=== PATIENT | female | born 1995 | race Two or more races ===

== ENCOUNTER 2017-03-08 12:29 | Emergency (ER) | payer SELFPAY ==
[~2017-03-08] VITALS: Ht 167.6 cm; Wt 92.1 kg
[~2017-03-08 12:29] MED LIST: FERR-26 PO; PNV1TABL25 PO
[2017-03-08 13:43] VITALS: BP 128/60
[2017-03-08] MEDS ORDERED: CYCL10TA2 PO (14:20)
[2017-03-08] MEDS ORDERED: NAPR500T8 PO (14:20)
[2017-03-08] MEDS ORDERED: ACET-704 PO (14:20)
--- NOTE | 2017-03-08 14:20 | PHYS DOC ---
Past Medical History Past Medical History: Other Additional Past Medical Histor: gestational diabetes Past Surgical History: Other Additional Past Surgical Histo: right wrist surgery Alcohol Use: None Drug Use: None Adult General Chief Complaint Chief Complaint: BACK PAIN OR INJURY [facility] HPI Patient is a 22 year old female who presents with bilateral low back pain that has been going on since she had a baby 6 months ago. Patient states she had and epidural during delivery and believes this pain is from the epidural. Patient states she has not followed up with the doctor that did the epidural. Patient denies pain radiating to bilateral lower extremities. Denies any loss of bowel bladder function. Denies any numbness or tingling to bilateral lower extremities. Review of Systems Review of Systems Constitutional: Denies fever or chills [] Eyes: Denies change in visual acuity, redness, or eye pain [] HENT: Denies nasal congestion or sore throat [] Respiratory: Denies cough or shortness of breath [] Cardiovascular: No additional information not addressed in HPI [] GI: Denies abdominal pain, nausea, vomiting, bloody stools or diarrhea [] : Denies dysuria or hematuria [] Musculoskeletal: Bilateral low back pain Integument: Denies rash or skin lesions [] Neurologic: Denies headache, focal weakness or sensory changes [] Endocrine: Denies polyuria or polydipsia [] Allergies Allergies Allergies Coded Allergies Type Severity Reaction Last Updated Verified No Known Drug Allergies 02/07/15 No Physical Exam Physical Exam Constitutional: Well developed, well nourished, no acute distress, non-toxic appearance. [] HENT: Normocephalic, atraumatic, bilateral external ears normal, oropharynx moist, no oral exudates, nose normal. [] Eyes: PERRLA, EOMI, conjunctiva normal, no discharge. [] Neck: Normal range of motion, no tenderness, supple, no stridor. [] Cardiovascular:Heart rate regular rhythm, no murmur [] Lungs & Thorax: Bilateral breath sounds clear to auscultation [] Abdomen: Bowel sounds normal, soft, no tenderness, no masses, no pulsatile masses. [] Skin: Warm, dry, no erythema, no rash. [] Back: Tenderness diffusely to bilateral low back lumbar region. No midline Tenderness, no CVA tenderness. [] Extremities: No tenderness, no cyanosis, no clubbing, ROM intact, no edema. [] Neurologic: Alert and oriented X 3, normal motor function, normal sensory function, no focal deficits noted. [] Psychologic: Affect normal, judgement normal, mood normal. [] Current Patient Data Vital Signs Vital Signs Date Time Temp Pulse Resp B/P (MAP) Pulse Ox O2 Delivery O2 Flow Rate FiO2 03/08/17 13:43 98.0 80 18 99 Room Air 98.0 EKG EKG [] Radiology/Procedures Radiology/Procedures [] Course & Med Decision Making Course & Med Decision Making Pertinent Labs and Imaging studies reviewed. (See chart for details) Patient is in the ED with back pain that she believes is from an epidural she got to 6 months ago when she had a baby. She was given Tylenol#3 naproxen and Flexeril for home use and recommended she follows up with the doctor that did epidural Dragon Disclaimer Dragon Disclaimer This electronic medical record was generated, in whole or in part, using a voice recognition dictation system. Departure Departure Impression: Primary Impression: Chronic back pain Disposition: 01 HOME, SELF-CARE Condition: STABLE Referrals: NO PCP (PCP) Follow-up with your doctor at [facility] Patient Instructions: Back Pain, Adult Additional Instructions: You were seen for back pain. Follow-up with your own doctor at [facility]. Scripts Naproxen (NAPROXEN) 500 Mg Tablet. 1 TAB PO BID, #60 TAB 1 Refill Prov: DANIEL CARY APRN 03/08/17 Acetaminophen With Codeine (TYLENOL WITH CODEINE #3 TABLET) 1 Each Tablet 1 TAB PO PRN Q6HRS Y for PAIN, #30 TAB Prov: DANIEL CARY APRN 03/08/17 Cyclobenzaprine Hcl (CYCLOBENZAPRINE HCL) 10 Mg Tablet 1 TAB PO TID, #30 TAB Prov: DANIEL CARY APRN 03/08/17 Problem Qualifiers Primary Impression: Chronic back pain Back pain location: low back pain Back pain laterality: bilateral Sciatica presence: without sciatica Qualified Codes: M54.5 - Low back pain; G89.29 - Other chronic pain DANIEL CARY APRN March 08, 2017 14:20
--- NOTE | 2017-03-08 15:24 | RAD ---
Indication: Chronic low back pain. Time of exam 1457 hours. 3 views of the lumbar spine were obtained. Curvature and alignment is normal. The vertebral body heights and disc spaces are well-maintained. No fracture or subluxation is identified. Impression: No acute bony abnormality is detected.
== END 2017-03-08 15:33 | disposition home or self-care (01) ==
LOC: ER 12:29
DX: G89.29 Other chronic pain (principal); M54.5 Low back pain
CPT/HCPCS: 72100; 99284

== ENCOUNTER 2018-05-24 23:20 | Emergency (ER) | payer SELFPAY ==
[2018-05-25 03:53] LABS: ADD MAN DIFF? NO; BASO # 0.1 x10^3/uL (0.0-0.2); BASO % 0 % (0-3); EOS # 0.1 x10^3/uL (0.0-0.7); EOS % 1 % (0-3); HEMATOCRIT 36.4 % (36.0-47.0); HEMOGLOBIN 11.9 g/dL (12.0-15.5); LYMPH # 4.3 x10^3/uL (1.0-4.8); LYMPH % 38 % (24-48); MEAN CORPUSCULAR HEMOGLOBIN 25 pg (25-35); MEAN CORPUSCULAR HGB CONC 33 g/dL (31-37); MEAN CORPUSCULAR VOLUME 77 fL (79-100); MONO # 0.6 x10^3/uL (0.0-1.1); MONO % 5 % (0-9); NEUT # 6.3 x10^3uL (1.8-7.7); NEUT % 56 % (31-73); PLATELET COUNT 206 x10^3/uL (140-400); RED BLOOD COUNT 4.73 x10^6/uL (3.50-5.40); RED CELL DISTRIBUTION WIDTH 16.5 % (11.5-14.5); WHITE BLOOD COUNT 11.4 x10^3/uL (4.0-11.0)
[2018-05-25 03:57] LABS: ANION GAP 9 (6-14); BLOOD UREA NITROGEN 10 mg/dL (7-20); CALCIUM 8.8 mg/dL (8.5-10.1); CARBON DIOXIDE 26 mmol/L (21-32); CHLORIDE 97 mmol/L (98-107); CREATININE 0.8 mg/dL (0.6-1.0); GFR 90.5; GLUCOSE 415 mg/dL (70-99); MAGNESIUM 1.9 mg/dL (1.8-2.4); POTASSIUM 3.9 mmol/L (3.5-5.1); SODIUM 132 mmol/L (136-145)
[2018-05-25] MEDS: ACETAMINOPHEN 325 MG TABLET. PO (04:53)
== END 2018-05-25 05:01 | disposition home or self-care (01) ==
LOC: ER 23:20
DX: O03.9 Complete or unspecified spontaneous abortion without complication (principal); Z88.5 Allergy status to narcotic agent; Z3A.00 Weeks of gestation of pregnancy not specified
CPT/HCPCS: 36415; 76801; 76817; 80048; 83735; 84702; 85025; 86900; 86901; 99285-25

== ENCOUNTER 2018-06-19 08:01 | Emergency (ER) | payer SELFPAY ==
[~2018-06-19] VITALS: Ht 170.2 cm; Wt 81.6 kg
[~2018-06-19 08:01] MED LIST changes: +ACET-704 PO; +CYCL10TA2 PO; -FERR-26 PO; +FERR325T14 PO; +NAPR500T8 PO; +TRAM50TA PO
[2018-06-19 08:33] VITALS: BP 141/67
[2018-06-19] MEDS ORDERED: IPRATRPIUM/ALBUTEROL 0.5/2.5MG 3 ML NEBU. ONE (10:13)
[2018-06-19] MEDS ORDERED: DEXAMETHASONE 4 MG TABLET PO ONE (10:30)
[2018-06-19] MEDS ORDERED: IBUPROFEN 600 MG TABLET. PO ONE (10:30)
[2018-06-19] MEDS ORDERED: IPRATRPIUM/ALBUTEROL 0.5/2.5MG 3 ML NEBU. NEB ONE (10:30)
--- NOTE | 2018-06-19 10:56 | PHYS DOC ---
Past Medical History Past Medical History: No Pertinent History Additional Past Medical Histor: gestational diabetes Past Surgical History: No Surgical History Additional Past Surgical Histo: right wrist surgery Alcohol Use: None Drug Use: None Adult General Chief Complaint Chief Complaint: COUGH HPI HPI Patient is a 23 year old [f__sex] who presents with [] Review of Systems Review of Systems Constitutional: Denies fever or chills [] Eyes: Denies change in visual acuity, redness, or eye pain [] HENT: Denies nasal congestion or sore throat [] Respiratory: Denies cough or shortness of breath [] Cardiovascular: No additional information not addressed in HPI [] GI: Denies abdominal pain, nausea, vomiting, bloody stools or diarrhea [] : Denies dysuria or hematuria [] Musculoskeletal: Denies back pain or joint pain [] Integument: Denies rash or skin lesions [] Neurologic: Denies headache, focal weakness or sensory changes [] Endocrine: Denies polyuria or polydipsia [] All other systems were reviewed and found to be within normal limits, except as documented in this note. Current Medications Current Medications Current Medications Medications (Trade) Dose Ordered Sig/Isadora Start Time Stop Time Status Last Admin Dose Admin Albuterol/ Ipratropium (Duoneb) 3 ml STK-MED ONCE 06/19/18 10:13 06/19/18 10:14 DC Dexamethasone (Decadron) 10 mg 1X ONCE 06/19/18 10:30 06/19/18 10:31 DC Ibuprofen (Motrin) 600 mg 1X ONCE 06/19/18 10:30 06/19/18 10:31 DC Allergies Allergies Allergies Coded Allergies Type Severity Reaction Last Updated Verified codeine Adverse Reaction Intermediate HALLUCINATION 03/08/17 Yes Physical Exam Physical Exam Constitutional: Well developed, well nourished, no acute distress, non-toxic appearance. [] HENT: Normocephalic, atraumatic, bilateral external ears normal, oropharynx moist, no oral exudates, nose normal. [] Eyes: PERRLA, EOMI, conjunctiva normal, no discharge. [] Neck: Normal range of motion, no tenderness, supple, no stridor. [] Cardiovascular:Heart rate regular rhythm, no murmur [] Lungs & Thorax: Bilateral breath sounds clear to auscultation [] Abdomen: Bowel sounds normal, soft, no tenderness, no masses, no pulsatile masses. [] Skin: Warm, dry, no erythema, no rash. [] Back: No tenderness, no CVA tenderness. [] Extremities: No tenderness, no cyanosis, no clubbing, ROM intact, no edema. [] Neurologic: Alert and oriented X 3, normal motor function, normal sensory function, no focal deficits noted. [] Psychologic: Affect normal, judgement normal, mood normal. [] Current Patient Data Vital Signs Vital Signs Date Time Temp Pulse Resp B/P (MAP) Pulse Ox O2 Delivery O2 Flow Rate FiO2 06/19/18 10:23 100 Room Air 06/19/18 08:33 98.4 81 20 141/67 (91) 98.4 EKG EKG [] Radiology/Procedures Radiology/Procedures [] Course & Med Decision Making Course & Med Decision Making Pertinent Labs and Imaging studies reviewed. (See chart for details) [] Dragon Disclaimer Dragon Disclaimer This electronic medical record was generated, in whole or in part, using a voice recognition dictation system. Departure Departure Impression: Primary Impression: Cough Additional Impressions: Viral syndrome Chest pain Disposition: HOME, SELF-CARE Condition: STABLE Referrals: NO PCP (PCP) Patient Instructions: Chest Pain (Nonspecific), Cough, Adult, Viral Syndrome Additional Instructions: Tylenol and/or Ibuprofen as needed for pain as directed on container. Drink plenty of fluids. If symptoms persist then follow-up with primary doctor for re-evaluation Problem Qualifiers CIARAN CASTELLANOS APRN Jun 19, 2018 10:56
--- NOTE | 2018-06-19 18:02 | EKG ---
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
[2018-06-22] MEDS ORDERED: SIMV10TA3 PO (08:33)
[2018-06-22] MEDS ORDERED: INSU100I11 SQ (08:33)
[2018-06-22] MEDS ORDERED: INSU100I13 SQ (08:33)
== END 2018-06-19 11:06 | disposition home or self-care (01) ==
LOC: ER 08:01
DX: B34.9 Viral infection, unspecified (principal); R07.89 Other chest pain; Z88.5 Allergy status to narcotic agent
CPT/HCPCS: 93005; 94640; 99283; J7620

== ENCOUNTER 2018-11-01 18:51 | Emergency (ER) | payer SELFPAY ==
[~2018-11-01] VITALS: Ht 165.1 cm; Wt 80.3 kg
[~2018-11-01 18:51] MED LIST changes: +INSU100I11 SQ; +INSU100I13 SQ; +SIMV10TA3 PO
[2018-11-01 19:19] VITALS: BP 136/57
[2018-11-01] MEDS ORDERED: INSU100V SQ (19:30)
--- NOTE | 2018-11-01 19:30 | PHYS DOC ---
Past Medical History Past Medical History: Diabetes-Type II Additional Past Medical Histor: gestational diabetes Past Surgical History: No Surgical History Additional Past Surgical Histo: right wrist surgery Alcohol Use: None Drug Use: None Adult General Chief Complaint Chief Complaint: MEDICATION REFILL HPI HPI Patient is a 23 year old female who presents with need for prescription for insulin. Patient was seen at a clinic, [facility], however the pharmacy where she took the prescription was unable to read the signature. Patient denies any polyuria, polydipsia, polyphagia. She is out of her short acting Humalog but does have her long-acting insulin. Denies any nausea or vomiting.[] Review of Systems Review of Systems Constitutional: Denies fever or chills [] Eyes: Denies change in visual acuity, redness, or eye pain [] HENT: Denies nasal congestion or sore throat [] Respiratory: Denies cough or shortness of breath [] Cardiovascular: No chest pain or palpitations[] GI: Denies abdominal pain, nausea, vomiting, bloody stools or diarrhea [] : Denies dysuria or hematuria [] Musculoskeletal: Denies back pain or joint pain [] Integument: Denies rash or skin lesions [] Neurologic: Denies headache, focal weakness or sensory changes [] Endocrine: Denies polyuria or polydipsia [] All other systems were reviewed and found to be within normal limits, except as documented in this note. Allergies Allergies Allergies Coded Allergies Type Severity Reaction Last Updated Verified codeine Adverse Reaction Intermediate HALLUCINATION 03/08/17 Yes Physical Exam Physical Exam Constitutional: Well developed, well nourished, no acute distress, non-toxic appearance. [] HENT: Normocephalic, atraumatic, bilateral external ears normal, oropharynx moist, no oral exudates, nose normal. [] Eyes: PERRLA, EOMI, conjunctiva normal, no discharge. [] Neck: Normal range of motion, no tenderness, supple, no stridor. [] Cardiovascular:Heart rate regular rhythm, no murmur [] Lungs & Thorax: Bilateral breath sounds clear to auscultation [] Abdomen: Bowel sounds normal, soft, no tenderness, no masses, no pulsatile masses. [] Skin: Warm, dry, no erythema, no rash. [] Back: No tenderness, no CVA tenderness. [] Extremities: No tenderness, no cyanosis, no clubbing, ROM intact, no edema. [] Neurologic: Alert and oriented X 3, normal motor function, normal sensory function, no focal deficits noted. [] Psychologic: Affect normal, judgement normal, mood normal. [] EKG EKG [] Radiology/Procedures Radiology/Procedures [] Course & Med Decision Making Course & Med Decision Making Pertinent Labs and Imaging studies reviewed. (See chart for details) ED course: Patient arrived, was placed in bed, tolerated exam well. Patient was discharged in improved condition. Nikolai decision making: Do not believe this patient to be in diabetic ketoacidosis, patient reports that her fingerstick blood sugars been running in the 150s. No nausea or vomiting, no polyuria, polyphagia, polydipsia.[] Dragon Disclaimer Dragon Disclaimer This electronic medical record was generated, in whole or in part, using a voice recognition dictation system. Departure Departure Impression: Primary Impression: Medication refill Disposition: HOME, SELF-CARE Condition: GOOD Referrals: UNKNOWN PCP NAME (PCP) Patient Instructions: Diabetes, Keeping Your Heart and Blood Vessels Healthy, Diet - 2000 Calorie Diabetic Additional Instructions: Follow-up with your primary care physician in 2 days. If you do not have one, list of local low-cost clinics will be provided for you. Return to the ER if any concerns. Scripts Insulin Lispro (HUMALOG) 100 Unit/1 Ml Vial 6 UNIT SQ TID, #1 VIAL 1 Refill Prov: MILES BYERS DO 11/01/18 MILES BYERS DO Nov 01, 2018 19:30
[2018-11-01] MEDS ORDERED: INSU100I11 SQ (19:57)
== END 2018-11-01 19:38 | disposition home or self-care (01) ==
LOC: ER 18:51
DX: E11.9 Type 2 diabetes mellitus without complications (principal); Z76.0 Encounter for issue of repeat prescription; Z88.5 Allergy status to narcotic agent
CPT/HCPCS: 99283

== ENCOUNTER 2019-04-05 20:18 | Emergency (ER) | payer SELFPAY ==
[~2019-04-05] VITALS: Ht 167.6 cm; Wt 77.1 kg
[~2019-04-05 20:18] MED LIST changes: +INSU100V SQ
[2019-04-05 20:43] VITALS: BP 138/73
[2019-04-05] MEDS ORDERED: IBUP-1060 PO (21:56)
[2019-04-05] MEDS ORDERED: CYCL10TA2 PO (21:56)
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
[2019-04-05] MEDS ORDERED: KETOROLAC 30 MG/ML VIAL. IM ONE (22:15)
== END 2019-04-05 22:17 | disposition home or self-care (01) ==
LOC: ER 20:18
DX: M54.2 Cervicalgia (principal); M54.5 Low back pain; R51 Headache; R53.1 Weakness; E11.9 Type 2 diabetes mellitus without complications; Z88.5 Allergy status to narcotic agent; V43.52XA Car driver injured in collision with other type car in traffic accident, initial encounter; Y93.89 Activity, other specified; Y92.410 Unspecified street and highway as the place of occurrence of the external cause; Y99.8 Other external cause status
CPT/HCPCS: 96372; 99283; J1885